=== PATIENT | female | born 1980 | race Caucasian/White ===

== ENCOUNTER 2021-02-08 09:00 | Emergency (ER) | payer OTHER ==
[2021-02-08 09:10] VITALS: BMI 19.8
[2021-02-08] MEDS ORDERED: ONDANSETRON 4 MG/2 ML VIAL ONE (09:56)
[2021-02-08 10:23] LABS: BASO % 2.3 % (0-2.0); EOS % 2.8 % (0-4.5); HEMATOCRIT 39.9 % (32.4-45.2); HEMOGLOBIN 12.7 GM/dl (10.7-15.3); LYMPH % 31.3 % (8-40); MCH 29.8 pg (25.7-33.7); MCHC 31.8 g/dl (32.0-36.0); MEAN CELL VOLUME 93.7 fl (80-96); MEAN PLT VOLUME 8.3 fl (7.5-11.1); MONO % 5.7 % (3.8-10.2); NEUT % 57.9 % (42.8-82.8); PLATELET COUNT 338 K/MM3 (134-434); RBC 4.26 M/mm3 (3.60-5.2); RDW 13.3 % (11.6-15.6); WHITE BLOOD COUNT 6.4 K/mm3 (4.0-10.8)
[2021-02-08] MEDS ORDERED: ONDANSETRON 4 MG/2 ML VIAL IVPUSH ONE (10:27)
[2021-02-08 11:39] LABS: ALBUMIN 3.8 g/dl (3.4-5.0); BLOOD UREA NITROGEN 17.6 mg/dL (7-18); CALCIUM 9.4 mg/dL (8.5-10.1)
[2021-02-08 11:42] LABS: CREATININE 0.9 mg/dL (0.55-1.3)
[2021-02-08 11:44] LABS: BILIRUBIN,TOTAL 0.2 mg/dL (0.2-1); TOT PROT 7.1 g/dl (6.4-8.2)
[2021-02-08 15:15] VITALS: BP 111/76; PULSE 75; TEMP 97.8
== END 2021-02-08 15:20 | disposition home or self-care (01) ==
LOC: SUPCPDRO 09:00 → FER 09:00
PROC: 3E033NZ Introduction of Analgesics, Hypnotics, Sedatives into Peripheral Vein, Percutaneous Approach (ICD-10-PCS; principal; 2021-02-08)
DX: R63.0 Anorexia (principal); K59.00 Constipation, unspecified; R63.4 Abnormal weight loss
CPT/HCPCS: 36415; 74177-TC; 80053; 81003; 83690; 84443; 84703; 85025; 99285-25; Q9967

== ENCOUNTER 2021-07-11 12:04 | Emergency (ER) | payer OTHER ==
[2021-07-11 12:20] VITALS: BP 131/83; PULSE 86; TEMP 99; BMI 20.3
== END 2021-07-11 13:16 | disposition home or self-care (01) ==
LOC: FER 12:04
DX: F41.9 Anxiety disorder, unspecified (principal); Z76.0 Encounter for issue of repeat prescription
CPT/HCPCS: 99281-25

== ENCOUNTER 2022-12-04 05:52 | Emergency (ER) | payer OTHER ==
[2022-12-04 06:05] VITALS: BP 109/48; PULSE 77; RESP 18; TEMP 97.3; BMI 20.3
[2022-12-04] MEDS ORDERED: PANTOPRAZOLE 40 MG TABLET PO ONE ×2 (06:32→06:38)
[2022-12-04] MEDS ORDERED: SODIUM CHLORIDE 0.9% 500 ML INFUS.BAG IV ONE (07:09)
[2022-12-04] MEDS ORDERED: HALOPERIDOL LACTATE 5 MG/ML IM ONE ×2 (07:10→07:16)
[2022-12-04 09:11] LABS: HEMATOCRIT 30.9 % (32.4-45.2); HEMOGLOBIN 10.3 G/dL (10.7-15.3); MCH 29.2 pg (25.7-33.7); MCHC 33.5 g/dl (32.0-36.0); MEAN CELL VOLUME 87.2 fl (80-96); MEAN PLT VOLUME 7.7 fl (7.5-11.1); PLATELET COUNT 283.2 10^3/uL (134-434); RBC 3.54 10^6/uL (3.60-5.2); WHITE BLOOD COUNT 5.9 10^3/uL (4.0-10.8)
[2022-12-04 09:24] LABS: ALBUMIN 3.8 g/dl (3.4-5.0); BILIRUBIN,TOTAL 0.6 mg/dl (0.2-1); CALCIUM 8.4 mg/dl (8.5-10); CREATININE 0.7 mg/dl (0.55-1.3); TOT PROT 6.4 g/dl (6.4-8.2)
== END 2022-12-04 11:02 | disposition home or self-care (01) ==
LOC: FER 05:52
PROC: 3E023GC Introduction of Other Therapeutic Substance into Muscle, Percutaneous Approach (ICD-10-PCS; principal; 2022-12-04)
DX: K29.70 Gastritis, unspecified, without bleeding (principal); F12.99 Cannabis use, unspecified with unspecified cannabis-induced disorder
CPT/HCPCS: 36415; 80053; 83690; 84703; 85027; 93005; 96372; 99284-25

== ENCOUNTER 2023-02-07 08:06 | Emergency (ER) | payer OTHER ==
[2023-02-07] MEDS ORDERED: SODIUM CHLORIDE 0.9% 500 ML INFUS.BAG IV ONE (08:10)
[2023-02-07] MEDS ORDERED: LORazepam 2 MG/ML SDV VIAL IVPUSH ONE (08:15)
[2023-02-07 08:26] VITALS: TEMP 98.2; BMI 21.2
[2023-02-07 09:20] LABS: HEMATOCRIT 33.3 % (32.4-45.2); HEMOGLOBIN 10.9 G/dL (10.7-15.3); MCH 28.7 pg (25.7-33.7); MCHC 32.6 g/dl (32.0-36.0); MEAN CELL VOLUME 87.8 fl (80-96); MEAN PLT VOLUME 8.2 fl (7.5-11.1); RBC 3.79 10^6/uL (3.60-5.2); WHITE BLOOD COUNT 7.7 10^3/uL (4.0-10.8)
[2023-02-07 09:24] LABS: BILIRUBIN,TOTAL 0.3 mg/dl (0.2-1); CALCIUM 9.1 mg/dl (8.5-10); CREATININE 0.8 mg/dl (0.55-1.3); TOT PROT 6.8 g/dl (6.4-8.2)
[2023-02-07 09:30] LABS: PLATELET ESTIMATE ADEQUATE
[2023-02-07 11:29] VITALS: BP 94/50; PULSE 89; RESP 16
[2023-02-07] MEDS ORDERED: GABAPENTIN 400 MG CAPSULE PO ONE (12:41)
[2023-02-07] MEDS ORDERED: GABAPENTIN 300 MG CAPSULE PO ONE (12:53)
[2023-02-07] MEDS ORDERED: GABAPENTIN 300 MG CAPSULE ONE (12:53)
== END 2023-02-07 13:11 | disposition home or self-care (01) ==
LOC: FER 08:06
PROC: 3E033GC Introduction of Other Therapeutic Substance into Peripheral Vein, Percutaneous Approach (ICD-10-PCS; principal; 2023-02-07)
DX: T42.6X1A Poisoning by other antiepileptic and sedative-hypnotic drugs, accidental (unintentional), initial encounter (principal)
CPT/HCPCS: 36415; 80053; 80307; 83690; 84484; 84703; 85027; 93005; 99291